=== PATIENT | female | born 1960 | race Caucasian/White ===

== ENCOUNTER → 2019-08-14 12:11 | Outpatient (CLI) | payer OTHER, SELFPAY ==
--- NOTE | 2019-08-14 | DI.US.S_ITS ---
PROCEDURE: US PERIPH VENOUS LOW EXTREM LT INDICATIONS: EDEMA TECHNIQUE: Real-time imaging, as well as color and pulse Doppler interrogation, were performed of the lower extremity deep veins from the inguinal ligament to the popliteal fossa. COMPARISON: None. FINDINGS: The common femoral, femoral and popliteal veins are slightly expansile and contains slightly echogenic material and diffusely. There is no detectable color or pulsed Doppler venous flow in the deep venous system. Each interrogated segment and is incompressible. Greater saphenous vein is also noncompressible and filled with echogenic material. Incidentally noted is a small, mildly complicated Miller's cyst measuring 4.7 x 1.4 x 2.3 cm in the popliteal fossa. IMPRESSION: 1. Extensive deep venous thrombosis in the entire lower extremity venous system. 2. Small complicated popliteal fossa cyst. 3. Findings were called by the technologist to the ordering physician (Dr. Magdaleno) and also conveyed to Yoli Duque RN. in the patient's primary care office at 12:57 PM. Dictated by: Kat Dougherty M.D. on 08/14/2019 at 13:32 Approved by: Kat Dougherty M.D. on 08/14/2019 at 13:38
== END ==
PROVIDERS: Visit Provider Orthopaedic Surgery
DX: M79.89 Other specified soft tissue disorders (principal); I82.412 Acute embolism and thrombosis of left femoral vein; I82.432 Acute embolism and thrombosis of left popliteal vein; I82.492 Acute embolism and thrombosis of other specified deep vein of left lower extremity; M71.22 Synovial cyst of popliteal space [Baker], left knee
CPT/HCPCS: 93971